=== PATIENT | male | born 1980 | race Caucasian/White ===

== ENCOUNTER 2017-03-14 14:42 | Observation (INO) | payer OTHER ==
[~2017-03-14] VITALS: Ht 182.9 cm; Wt 83.4 kg
[2017-03-14] VITALS (10 sets, daily range): BP systolic 104–133; BP diastolic 59–85; PULSE 62–95; RESP 12–20; O2SAT 98–100
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
[2017-03-14] MEDS ORDERED: 0.9% Sodium Chloride 1,000 ML IV ONE (16:16)
[2017-03-14 16:41] LABS: BASOPHILS % (AUTO) 0.2 % (0-3); EOSINOPHILS % (AUTO) 0.4 % (0-5); MONOCYTES % (AUTO) 6.9 % (4-12); Mean Corpuscular Hemoglobin 29.8 pg (27.0-35.0); Mean Corpuscular Volume 81.7 fL (81-100); NEUTROPHILS % (AUTO) 84.4 % (40-74); Platelet Count 196 bil/L (150-400)
--- NOTE | 2017-03-14 16:57 | DRSVH ---
PROCEDURE: CT BRAIN WITHOUT CONTRAST ([id number]) INDICATIONS: seizure? TECHNIQUE: Noncontrast 4.5 mm thick angled axial sections acquired from the foramen magnum to the vertex, with c oronal reformats. COMPARISON: None. FINDINGS: Image quality: Excellent. Brain: There is no acute intra-axial or extra-axial hemorrhage. No extra-axial fluid collection is i dentified. There is no midline shift or mass effect. The orbits are grossly unremarkable. No large areas of diffusely decreased attenuation are evident within the brain to suggest diffuse cer ebral edema. No focal parenchymal abnormality is identified. The ventricles and cortical sulci are age-appropriate. Bones: Calvarium and visualized facial bones are grossly intact. The imaged paranasal sinuses and m astoid air cells are clear. IMPRESSION: Negative head CT. No acute intracranial hemorrhage. Dictated by: Curt Avila M.D. on 03/14/2017 at 15:55 Approved by: Curt Avila M.D. on 03/14/2017 at 15:55
[2017-03-14] MEDS ORDERED: Alum-Mag Hydrox-Simeth 30 mL Suspension PO PRN (17:20)
[2017-03-14] MEDS ORDERED: Ondansetron 2 mg/mL 2 mL Inj IVPUSH PRN (17:20)
--- NOTE | 2017-03-14 18:01 | PCM.HPMED ---
Subjective Date of Service March 14, 2017 Primary Provider: Admitting Physician: Primary Care Physician: Nopcp Attending Physician: Allergies Coded Allergies: No Known Allergies (Unverified , 03/14/17) PMH Social History Hx Alcohol Use: No Hx Substance Use: No Smoking Status: Unknown if Ever Smoker Exam Vital Signs Vital Sign - Last Date Time Temp Pulse Resp B/P Pulse Ox O2 Delivery O2 Flow Rate FiO2 03/14/17 17:25 85 17 133/65 100 Room Air 03/14/17 14:48 35.6 Lab and Diagnostics Result Diagram: 03/14/17 1630 03/14/17 1630 Neyda Castaneda DO March 14, 2017 18:01
[2017-03-14] MEDS ORDERED: Polyethylene Glycol (PEG) 17 Gm Powder PO PRN (18:25)
[2017-03-14 18:26] LABS: APPEARANCE,URINE CLEAR (CLEAR,HAZY); COLOR,URINE YELLOW (YELLOW); OCCULT BLOOD,URINE NEGATIVE (NEGATIVE)
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
[2017-03-14] MEDS: 0.9% Sodium Chloride 1,000 ML IV SCH (21:57)
[2017-03-15] VITALS (7 sets, daily range): BP systolic 104–127; BP diastolic 63–71; PULSE 51–81; RESP 18–20; O2SAT 97–99
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
[2017-03-15] MEDS: 0.9% Sodium Chloride 1,000 ML IV SCH ×2 (06:25→16:01)
[2017-03-15 06:47] LABS: BASOPHILS % (AUTO) 0.6 % (0-3); EOSINOPHILS % (AUTO) 2.2 % (0-5); MONOCYTES % (AUTO) 12.3 % (4-12); Mean Corpuscular Hemoglobin 29.9 pg (27.0-35.0); Mean Corpuscular Volume 84.3 fL (81-100); NEUTROPHILS % (AUTO) 58.5 % (40-74); Platelet Count 172 bil/L (150-400)
[2017-03-15 07:00] LABS: TROPONIN T 0.01 ug/L (0.0-0.011)
--- NOTE | 2017-03-15 09:02 | NUR ---
Social Work: Screening Data: Pt is a 36 y/o male admitted for syncope. Pt's PCP is not listed. Pt's insurance is L&I with [employer]. EMR reviewed. No d/c planning needs anticipated at this time. [facility] will continue to follow if needs arise. Assessment: Pt who is independent at baseline. Plan: Pt will d/c home via POV when medically stable. No d/c planning needs anticipated at this time. [facility] [employer] will continue to follow if needs arise. ELVIN Hayes
--- NOTE | 2017-03-15 10:14 | DRSVH ---
PROCEDURE: US BILATERAL DUPLEX DOPPLER IMAGING OF THE CAROTIDS ([id number]) INDICATIONS: syncope TECHNIQUE: Color and pulse Doppler interrogation was performed of both carotid systems, with image documentation and velocity measurements. COMPARISON: None. FINDINGS: All stenosis calculations are based on NASCET criteria. Right side: Brachial blood pressure: 111/69 mm Hg. Common Carotid Artery(Distal) PSV: 117.80 cm/s Internal Carotid Artery PSV- Proximal: 94.40 cm/s Mid-lon.40 cm/s Distal: 76.40 cm/s EDV - Proximal: 20.40 cm/s Mid-lon.40 cm/s Distal: 29.40 cm/s External Carotid Artery(Proximal) PSV: 107.40 cm/s ICA/CCA PSV ratio: 0.8 Patterson scale imaging description: Normal Percent internal carotid artery stenosis: No stenosis. Vertebral artery: Flow direction is antegrade. Left side: Brachial blood pressure: n.a. Common Carotid Artery(Distal) PSV: 129 cm/s Internal Carotid Artery PSV - Proximal: 75.50 cm/s Mid-lon.30 cm/s Distal: 76.40 cm/s EDV - Proximal: 27.50 cm/s Mid-lon.70 cm/s Distal: 30.80 cm/s External Carotid Artery(Proximal) PSV: 89.20 cm/s ICA/CCA PSV ratio: 0.68 Patterson scale imaging description: Normal Percent internal carotid artery stenosis: No stenosis. Vertebral artery: Flow direction is antegrade. IMPRESSION: 1. Normal carotid Doppler ultrasound exam. 2. Antegrade flow in vertebral arteries bilaterally. Dictated by: Shane Ross M.D. on 03/15/2017 at 10:11 Approved by: Shane Ross M.D. on 03/15/2017 at 10:12
--- NOTE | 2017-03-15 16:37 | DRSVH ---
[facility] [address] [place] [address] Echocardiogram Report Name: KYLE BILLINGS LStudy Date: 03/15/2017 Height: 72 in Hospital Exam Location: [facility] Weight: 184 lb Gender: Male BSA: 2.1 m2 : 1980 Age: 36 yrs BP: 111/69 mmHg Reason For Study: Syncope Ordering Physician[facility]formed By: Shay Jones Referring Physician: VITO SANTANA Interpretation Summary Left ventricular systolic function is normal without focal wall motion abnormalities. The ejection fraction is estimated to be 55-60%. The right ventricle is normal in size, thickness and function. The right ventricular systolic pressure is estimated at 20 mmHg assuming a right atrial pressure of 3 mm Hg. Borderline left atrial enlargement. Right atrial size is normal. The aortic valve is bicuspid. There is mild aortic regurgitation. There is no other significant valvular heart disease. The aortic root is normal size. Procedure: A two-dimensional transthoracic echocardiogram with color flow and Doppler was performed. The study quality was technically adequate. There is no prior echocardiogram noted for this patient. The patient was in sinus bradycardia with heart rates between 49-62 bpm during the exam. Left Ventricle: The left ventricle is normal in size. There is normal left ventricular wall thickness. Left ventricular systolic function is normal without focal wall motion abnormalities. The ejection fraction is estimated to be 55-60%. Assessment of diastolic parameters indicates normal left ventricular diastolic function and normal filling pressures. Right Ventricle: The right ventricle is normal in size, thickness and function. Atria: Borderline left atrial enlargement. Right atrial size is normal. The interatrial septum is intact with no evidence for an atrial septal defect. Mitral Valve: The mitral valve is normal. There is trace mitral regurgitation. Aortic Valve: The aortic valve is bicuspid. There is mild aortic regurgitation. Tricuspid Valve: The tricuspid valve is normal. There is trace tricuspid regurgitation. The right ventricular systolic pressure is estimated at 20 mmHg assuming a right atrial pressure of 3 mm Hg. Pulmonic Valve: The pulmonic valve is not well seen, but is grossly normal. There is a trace or physiologic amount of pulmonic regurgitation. There is no other significant valvular heart disease. Great Vessels: The aortic root is normal size. The dimensions of the ascending aorta are normal. The pulmonary artery is not well visualized, but is probably normal size. The IVC is of normal diameter and collapses greater than 50% with a sniff. This suggests a low right atrial pressure of 3 mm Hg. Pericardium/ Pleura There is no pericardial effusion. There is no pleural effusion. MMode/2D Measurements & Calculations LVIDd: 5.0 cm RA long axis LVOT diam LVIDs: 3.4 cm LA A2 area: 20.1 cm FS: 32.7 % LA A4 area: 21.9 cm RA area AoV Opening EPSS: 0.60 cm LA length (vol): 5.4 cm IVSd: 0.82 cm LA vol: 69.2 ml : 14.0 cm Ao root diam LVPWd: 0.83 cm LA vol index RA vol : 34.8 ml asc Aorta RA Diam: 3.1 cm IVC diam: 1.7 cm : 16.9 mm2 LV rm. diameter/BSA LV sys. diameter/BSA RVD1 (basal) (cm/m^2): 2.4 (cm/m^2): 1.6 Doppler Measurements & Calculations Ao V2 max MV E max efren MV E/A: 2.8 TR max efren : 112.7 cm/sec : 96.3 cm/sec Med Peak E' Efren : 204.6 cm/sec Ao max P.1 mmHg MV A max efren TR max PG Ao mean P.5 mmHg : 34.1 cm/sec E/E' med: 8.8 : 16.7 mmHg LVOT Max Efren Lat Peak E' Efren PA V2 max : 96.3 cm/sec : 74.6 cm/sec RAZ(I,D): 5.1 cm E/E' lat: 8.3 PA mean PG sev ratio: 0.93 E/e' average: 8.6 : 1.3 mmHg MV dec time: 0.27 sec Ao V2 mean LV V1 max PG PA V2 mean : 73.6 cm/sec : 55.3 cm/sec Ao V2 VTI LV V1 VTI: 20.2 cm PA pr(Accel) : -15.8 mmHg RAZ(V,D): 4.7 cm2 RAZ indexed to BSA (cm^2/m^2): 2.5 Reading Physician:PM
[2017-03-15 22:28] LABS: Creatine Kinase 73 U/L (21-232)
[2017-03-16 00:57] VITALS: BP 114/63; PULSE 60; RESP 18; O2SAT 98
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
[2017-03-16 04:42] VITALS: BP 103/60; PULSE 62; RESP 18; O2SAT 99
[2017-03-16 06:09] VITALS: PULSE 65
--- NOTE | 2017-03-16 07:18 | NUR ---
Neuro/Tele Pt neuro checks all WNL, pt denied any symptoms neuro related. Pt denied pain overnight, vitals stable. Tele SBrady 40s-50s while pt asleep.
[2017-03-16 08:00] VITALS: PULSE 49
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
[2017-03-16 09:03] VITALS: BP 143/78; PULSE 56; RESP 20; O2SAT 99
[2017-03-16] MEDS ORDERED: levETIRAcetam 500 mg Tablet PO SCH (09:20)
[2017-03-16] MEDS ORDERED: KEP500TA PO (09:59)
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
--- NOTE | 2017-03-16 10:50 | NUR ---
Social Work-discharge: Data:EMR reviewed. Pt is on day 2 of hospitalization for syncope per H&P. Pt is medically stable for discharge at this time. SW has provided pt with phone number for department of licensing to call. Per RN notes, pt has been up independent in his room. Pt's family to provide transport home. No discharge needs identified. All updated and agreeable to plan. Assessment:Pt who is independent at baseline. Plan:Pt to discharge home today via POV. No discharge needs identified. All updated and agreeable to plan. ELVIN Real
--- NOTE | 2017-03-16 11:15 | NUR ---
Discharge Pt discharged at this time, all belongings gathered and returned to pt. VSS, no complains of LOC/seizure at time of discharge. IV D/Cd intact, tele monitor removed. Hard copy of new script given to pt to fill. Pt was unable to contact [facility] by phone, will be going directly to office at time of discharge to report seizure Dx. Discharge packet printed and reviewed with pt and SO. Pt declined offer of wheelchair, strong steady gait observed. PT escorted from [facility] to elevators by this RN. Pt to be drive to [facility] in private vehicle by SO. Pt aware of driving restriction until cleared by Neurology.
--- NOTE | 2017-03-16 23:34 | PCM.DIMED ---
Discharge Instructions Date of Service March 16, 2017 Dates of Hospitalization March 14, 2017 at 18:00 Discharge Diagnosis Discharge Diagnosis Seizure Disorder Medication Instructions Please start taking Keppra 1000 mg PO BID as prescribed. Avoid driving any type of motor vehicles. Do not engage in strenuous activity You are required to report your seizure to state/DOT Diet No restrictions Activity Other (Please do not drive a motor vehicle until cleared by neurologist) Call your provider Fever or Chills, Shortness of breath, Bleeding, Chest pain, Vomitting, Excessive diarrhea, Weakness (unilateral) Patient Instructions F/U with Dr. Chandni Dumont in one week at her clinic F/U with [facility] residency clinic in one week for follow up. MRI Seizure/Epilepsy Protocol prior to f/u with Neyda Valencia DO March 16, 2017 09:58
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
== END 2017-03-16 11:15 | disposition home or self-care (01) ==
LOC: SED 14:42 → MPC 18:00
PROVIDERS: ADMIT Family Medicine; ATTEND Family Medicine
DX: G40.909 Epilepsy, unspecified, not intractable, without status epilepticus (principal); R55 Syncope and collapse; R42 Dizziness and giddiness; D72.829 Elevated white blood cell count, unspecified; R32 Unspecified urinary incontinence; V48.0XXA Car driver injured in noncollision transport accident in nontraffic accident, initial encounter; Y93.89 Activity, other specified; Y92.411 Interstate highway as the place of occurrence of the external cause; Y99.8 Other external cause status
CPT/HCPCS: 36415; 70450; 80053; 81001; 82550; 82553; 83036; 83605; 84484; 85025; 93005; 93880; 95819; 96360; 99291; 99292; C8929; G0378; G0480; J1650; J7030